=== PATIENT | female | born 1980 | race Caucasian/White ===

== ENCOUNTER 2017-06-30 12:14 | Emergency (ER) | payer SELFPAY ==
--- NOTE | 2017-06-30 12:56 | RAD ---
TWO VIEWS OF THE CHEST: HISTORY: Cough. Chest pain. COMPARISON: 03/15/2015 FINDINGS: Two views of the chest show normal sized cardiomediastinal silhouette. There is no evidence of consol idation, mass, or pleural effusion. The bones are unremarkable. IMPRESSION: No evidence of acute cardiopulmonary disease. POS: [facility]
== END 2017-06-30 13:05 | disposition home or self-care (01) ==
LOC: ERS 12:14
DX: J06.9 Acute upper respiratory infection, unspecified (principal); Z87.891 Personal history of nicotine dependence
CPT/HCPCS: 71046

== ENCOUNTER 2017-11-05 15:16 | Emergency (ER) | payer BC ==
[2017-11-05 16:00] LABS: #Basophils 0.1 thou/uL (0.0-0.2); #Eosinphils 0.2 thou/uL (0.0-0.7); #Lymphocytes 2.2 thou/uL (1.20-3.40); #Monocytes 0.5 thou/uL (0.11-0.59); #Neutrophils 5.9 thou/uL (1.40-6.50); %Basophils 1.2 % (0.0-1.0); %Lymphocytes 24.6 % (21.0-51.0); %Monocytes 5.5 % (0.0-10.0); %Neutrophils 66.6 % (42.0-75.0); Hemoglobin 14.6 g/dL (12.0-16.0); Mean Corpuscular HGB CONC 33.8 g/dL (32.0-36.0); Mean Corpuscular Hemoglobin 30.1 pg (27.0-31.0); Mean Platelet Volume 7.1 fL (7.4-10.4); Platelet Count 299 thou/uL (130-400); RBC Distribution Width 12.7 % (11.5-14.5); Red Blood Cell (RBC) Count 4.85 mill/uL (4.20-5.40); White Blood Cell (WBC) Count 8.8 thou/uL (4.8-10.8)
[2017-11-05] MEDS ORDERED: Ketorolac Tromethamine 30 MG/ML VIAL ONE (16:02)
[2017-11-05] MEDS ORDERED: diphenhydrAMINE 50 MG/ML VIAL ONE (16:02)
[2017-11-05] MEDS ORDERED: methylPREDNISolone Sod Succ/PF 125 MG/2 ML VIAL ONE (16:02)
== END 2017-11-05 17:10 | disposition home or self-care (01) ==
LOC: SCSER 15:16
DX: R51 Headache (principal); F32.9 Major depressive disorder, single episode, unspecified; Z79.899 Other long term (current) drug therapy; Z87.891 Personal history of nicotine dependence
CPT/HCPCS: 85025; 85652; 86140; 96374; 96375; J1200; J1885; J2930

== ENCOUNTER 2018-04-25 10:56 | Emergency (ER) | payer BC ==
[2018-04-25] MEDS ORDERED: ISOVUE-370 76%-LOCM 1 ML ONE (12:33)
[2018-04-25 12:34] LABS: #Basophils 0.1 thou/uL (0.0-0.2); #Eosinphils 0.2 thou/uL (0.0-0.7); #Monocytes 0.6 thou/uL (0.11-0.59); %Basophils 0.7 % (0.0-1.0); %Eosinophils 2.5 % (0.0-10.0); %Lymphocytes 26.1 % (21.0-51.0); %Monocytes 7.2 % (0.0-10.0); %Neutrophils 63.5 % (42.0-75.0); Hemoglobin 14.1 g/dL (12.0-16.0); Mean Corpuscular HGB CONC 32.3 g/dL (32.0-36.0); Mean Corpuscular Hemoglobin 29.4 pg (27.0-31.0); Mean Corpuscular Volume 91.2 fL (78.0-98.0); Mean Platelet Volume 7.9 fL (7.4-10.4); Platelet Count 266 thou/uL (130-400); RBC Distribution Width 12.5 % (11.5-14.5); Red Blood Cell (RBC) Count 4.78 mill/uL (4.20-5.40); White Blood Cell (WBC) Count 7.8 thou/uL (4.8-10.8)
[2018-04-25 13:03] LABS: CKMB 0.4 ng/mL (0-6.6); Troponin I Less than 0.010 ng/mL (< 0.028)
[2018-04-25 13:06] LABS: ALT (SGPT) 24 U/L (8-55); AST (SGOT) 16 U/L (5-34); Alkaline Phosphatase 69 U/L (40-150); Anion Gap 12 mmol/L (10-20); BUN (Urea Nitrogen) 14 mg/dL (7.0-18.7); Bilirubin, Total 0.5 mg/dL (0.2-1.2); Calc. Creatinine Clearance 0 mL/min (70-130); Calcium 9.6 mg/dL (7.8-10.44); Carbon Dioxide 23 mmol/L (22-29); Chloride 106 mmol/L (98-107); Estimated GFR-MDRD 85; Globulin 3.4 g/dL (2.4-3.5); Glucose 83 mg/dL (70-105); Potassium 3.9 mmol/L (3.5-5.1); Protein, Total 7.4 g/dL (6.0-8.3); Sodium 137 mmol/L (136-145)
--- NOTE | 2018-04-25 15:11 | CT ---
CT ANGIOGRAM OF CHEST: Date: 04/25/18 HISTORY: Chest pain. Substernal pain. COMPARISON: None. TECHNIQUE: CT angiogram of the chest is performed in the axial plane. Three-dimensional reformatted images are s ubmitted for interpretation. FINDINGS: No mediastinal mass, lymphadenopathy, or hematoma. Heart size is within normal limits. No pericardial effusion. Visualized aorta is normal caliber. No periaortic fat stranding. Hypoattenuation of the liver due to hepatic steatosis. Visualized upper solid organs are unremarkable . Dependent atelectatic changes. Small focal opacity in the dependent portion of the right lower lobe m easuring 7.0 mm. Trachea and central bronchi are patent. Adequate contrast opacification of pulmonary arterial system to the level of the segmental arteries. No filling defect to suggest thromboembolism. IMPRESSION: 1. No evidence of thrombus to the level of the segmental arteries. 2. Hepatic steatosis. POS: [facility]
[2018-04-25] MEDS ORDERED: Ketorolac Tromethamine 30 MG/ML VIAL ONE (15:19)
--- NOTE | 2018-04-29 17:05 | EKG ---
Test Reason : Blood Pressure : / mmHG Vent. Rate : 067 BPM Atrial Rate : 067 BPM P-R Int : 156 ms QRS Dur : 082 ms QT Int : 394 ms P-R-T Axes : 039 018 011 degrees QTc Int : 416 ms Normal sinus rhythm Normal ECG Confirmed by FRANCISCO GALVAN ([id number]), editor city JARET PORTILLO ([id number]) on 04/29/2018 5:04:22 PM Referred By: Confirmed By:FRANCISCO GALVAN
--- NOTE | 2018-04-29 17:06 | EKG ---
Test Reason : Blood Pressure : / mmHG Vent. Rate : 073 BPM Atrial Rate : 073 BPM P-R Int : 148 ms QRS Dur : 082 ms QT Int : 386 ms P-R-T Axes : 021 020 011 degrees QTc Int : 425 ms Normal sinus rhythm Normal ECG Confirmed by FRANCISCO GALVAN ([id number]), subeditor JARET PORTILLO ([id number]) on 04/29/2018 5:06:24 PM Referred By: Confirmed By:FRANCISCO GALVAN
== END 2018-04-25 15:25 | disposition home or self-care (01) ==
LOC: ERS 10:56
DX: R07.89 Other chest pain (principal); F32.9 Major depressive disorder, single episode, unspecified; Z87.891 Personal history of nicotine dependence; Z79.899 Other long term (current) drug therapy
CPT/HCPCS: 36415; 71275; 80053; 82553; 83735; 84484; 85025; 85379; 93005; 94760; 96374; J1885

== ENCOUNTER 2018-10-05 18:41 | Observation (INO) | payer BC ==
[2018-10-05 19:08] LABS: #Basophils 0.1 thou/uL (0.0-0.2); #Eosinphils 0.2 thou/uL (0.0-0.7); #Lymphocytes 2.5 thou/uL (1.20-3.40); #Monocytes 0.5 thou/uL (0.11-0.59); #Neutrophils 7.7 thou/uL (1.40-6.50); %Basophils 0.6 % (0.0-1.0); %Eosinophils 2.2 % (0.0-10.0); %Lymphocytes 22.7 % (21.0-51.0); %Monocytes 4.8 % (0.0-10.0); %Neutrophils 69.8 % (42.0-75.0); Hemoglobin 14.1 g/dL (12.0-16.0); Mean Corpuscular HGB CONC 32.7 g/dL (32.0-36.0); Mean Corpuscular Hemoglobin 29.2 pg (27.0-31.0); Mean Corpuscular Volume 89.1 fL (78.0-98.0); Mean Platelet Volume 7.9 fL (7.4-10.4); Platelet Count 295 thou/uL (130-400); RBC Distribution Width 12.7 % (11.5-14.5); Red Blood Cell (RBC) Count 4.83 mill/uL (4.20-5.40); White Blood Cell (WBC) Count 11.1 thou/uL (4.8-10.8)
--- NOTE | 2018-10-05 19:19 | RAD ---
Portable frontal chest radiograph: 10/05/2018 COMPARISON: 07/16/2014 HISTORY: Chest pain FINDINGS: Lungs are clear. Heart and mediastinal contours appear within normal limits. IMPRESSION: No acute findings.
[2018-10-05 19:31] LABS: ALT (SGPT) 22 U/L (8-55); AST (SGOT) 18 U/L (5-34); Albumin 4.2 g/dL (3.5-5.0); Alkaline Phosphatase 83 U/L (40-150); Anion Gap 13 mmol/L (10-20); BUN (Urea Nitrogen) 12 mg/dL (7.0-18.7); Bilirubin, Total 0.3 mg/dL (0.2-1.2); Calc. Creatinine Clearance 0 mL/min (70-130); Calcium 9.6 mg/dL (7.8-10.44); Carbon Dioxide 25 mmol/L (22-29); Chloride 102 mmol/L (98-107); Estimated GFR-MDRD 81; Globulin 3.6 g/dL (2.4-3.5); Glucose 108 mg/dL (70-105); Lipase 24 U/L (8-78); Potassium 3.7 mmol/L (3.5-5.1); Protein, Total 7.8 g/dL (6.0-8.3); Sodium 136 mmol/L (136-145)
[2018-10-05] MEDS ORDERED: Aspirin Chewable 81 MG TAB ONE (19:49)
[2018-10-05] MEDS ORDERED: Nitroglycerin 2% Ointment 1 INCH/1 GM Packet ONE (19:49)
[2018-10-05 19:53] LABS: BHCG - Serum Negative (NEGATIVE); Pregs Control Background? CLEAR/WHITE (CLR/WHITE); Pregs Control Bar Appear? YES (CONTROL BAR)
[2018-10-05] MEDS ORDERED: Ondansetron ODT 4 MG TAB PO PRN (20:21)
[2018-10-05] MEDS ORDERED: Ondansetron PF 4 MG/2 ML Vial IVP PRN (20:21)
[2018-10-05] MEDS ORDERED: Labetalol HCl 100 MG/20 ML VIAL SLOW IVP PRN (20:59)
[2018-10-05 21:23] VITALS: BMI 53.2
[2018-10-05] MEDS: Acetaminophen 325 MG TAB PO PRN (21:48)
--- NOTE | 2018-10-05 21:52 | HP ---
PRIMARY CARE PHYSICIAN: Dr. Darcy Brothers. TIME OF EVALUATION: 8:00 p.m. CHIEF COMPLAINT: Chest pain. HISTORY OF PRESENT ILLNESS: This is a 37-year-old patient with past medical history of hypertension, came to the hospital after having chest pain, radiated to the left shoulder that was 6/10. walks around, the pain gets worse and the pain gets better with rest. Also associated with some nausea. Symptoms are moderate. The patient has a family history of coronary artery disease in her father. REVIEW OF SYSTEMS: CONSTITUTIONAL: No fever, chills, or generalized weakness. RESPIRATORY: No cough, sputum production, or shortness of breath. CARDIOVASCULAR: Chest pain. No palpitation. GASTROINTESTINAL: The patient reported nausea. No vomiting, diarrhea, or abdominal pain. CAPTAIN/AIRLINE PILOT: No dizziness, headache, or feeling lightheaded. GENITOURINARY: No burning on urination. EXTREMITIES: No leg swelling. All other systems were reviewed and negative except for the findings mentioned above. PAST MEDICAL HISTORY: Positive for left-sided ovarian cancer, hypertension. PAST SURGICAL HISTORY: Right carpal tunnel and oophorectomy. PSYCHIATRIC HISTORY: Depression. SOCIAL HISTORY: Drinks socially. No drug use. The patient is a former tobacco user. FAMILY HISTORY: Father has a history of heart disease. Mother has hypertension. KNOWN ALLERGIES: No known drug allergies. REPORTED MEDICATIONS: Zoloft and lisinopril. PHYSICAL EXAMINATION: VITAL SIGNS: On presentation, blood pressure 153/98 with heart rate 79, respiratory rate was 20, temperature 98.8, pain 4/10, oxygen saturation was 96. GENERAL APPEARANCE: The patient is alert, oriented, not in acute distress. HEENT: Eyes; normal conjunctivae. Moist oral mucosa. Anicteric. No JVD. RESPIRATORY: Bilateral air entry. No rales. No wheezes. Symmetric expansion. CARDIOVASCULAR: Normal rate, regular rhythm. No murmurs. No gallop. No edema. ABDOMEN: Soft. Normal bowel sounds. MUSCULOSKELETAL: Baseline range of motion and strength. No tenderness. SKIN: Warm, intact. No pallor. No rash. No redness. Peripheral pulses are present. Capillary refill seems to be intact. NEUROLOGIC: No evidence of any new focal weakness. Baseline speech. Cranial nerves seem to be intact. PSYCHIATRIC: The patient is in good mood. No anxiety. Optimal judgment. DIAGNOSTIC DATA: EKG was reviewed and the patient has normal sinus rhythm with a rate of 81 with [place] 142, QRS 82, QT corrected 439. Chest x-ray was reviewed, no acute findings. LABORATORY DATA: Labs were reviewed. The patient has a white count of 11.1, hemoglobin 14.1, hematocrit 43, MCV 89.1, platelet count 295. D-dimer 0.41. Chemistry; sodium 136, potassium 3.7, chloride 102, carbon dioxide 25, anion gap 13, BUN 12, creatinine 0.79, GFR 81, glucose 108, calcium 9.6. LFTs were normal. Albumin 4.2, globulin 3.6, albumin-globulin ratio is 1.2. Lipase 24. test was negative. ASSESSMENT AND PLAN: The patient will be placed in the hospital with following medical problems: 1. Chest pain, rule out acute coronary syndrome. Troponins negative. EKG unremarkable. We will monitor the patient on tele. We will do a stress test in the morning. Further workup to be determined after initial approach results. 2. Uncontrolled hypertension, systolic blood pressure 160. Reconcile home medications as soon as they have updated. The patient does not recall well what blood pressure medication she is using. Place the patient on p.r.n. medications for blood pressure control. 3. Deep venous thrombosis prophylaxis. 4. The patient is obese. Advised to lose weight. Job ID: [id number]
[2018-10-05 22:45] LABS: Cardiac Risk 5.7 (Less than 4.5)
[2018-10-05 22:49] LABS: Troponin I Less than 0.010 ng/mL (< 0.028)
[2018-10-06 04:59] LABS: #Eosinphils 0.3 thou/uL (0.0-0.7); #Lymphocytes 2.6 thou/uL (1.20-3.40); #Monocytes 0.7 thou/uL (0.11-0.59); %Basophils 0.4 % (0.0-1.0); %Eosinophils 3.5 % (0.0-10.0); %Lymphocytes 27.1 % (21.0-51.0); %Monocytes 7.2 % (0.0-10.0); %Neutrophils 61.9 % (42.0-75.0); Hemoglobin 12.3 g/dL (12.0-16.0); Mean Corpuscular HGB CONC 32.6 g/dL (32.0-36.0); Mean Corpuscular Hemoglobin 29.2 pg (27.0-31.0); Mean Corpuscular Volume 89.6 fL (78.0-98.0); Mean Platelet Volume 7.9 fL (7.4-10.4); Platelet Count 275 thou/uL (130-400); RBC Distribution Width 12.7 % (11.5-14.5); Red Blood Cell (RBC) Count 4.22 mill/uL (4.20-5.40); White Blood Cell (WBC) Count 9.7 thou/uL (4.8-10.8)
[2018-10-06 05:19] LABS: Anion Gap 13 mmol/L (10-20); BUN (Urea Nitrogen) 11 mg/dL (7.0-18.7); Calc. Creatinine Clearance 237 mL/min (70-130); Carbon Dioxide 25 mmol/L (22-29); Chloride 104 mmol/L (98-107); Estimated GFR-MDRD Greater than 90; Glucose 93 mg/dL (70-105); Sodium 138 mmol/L (136-145)
[2018-10-06] MEDS: Acetaminophen 325 MG TAB PO PRN ×2 (08:31→13:54)
[2018-10-06] MEDS ORDERED: Enoxaparin Sodium 40 MG/0.4 ML SYRINGE SC SCH (09:00)
[2018-10-06 11:24] VITALS: BP 112/66; TEMP 98
[2018-10-06] MEDS ORDERED: Ketorolac Tromethamine 30 MG/ML VIAL IVP SCH ×2 (13:45→14:45)
--- NOTE | 2018-10-07 01:37 | DIS ---
DATE OF ADMISSION: 10/05/2018 DATE OF DISCHARGE: 10/06/2018 ALLERGIES: NO KNOWN DRUG ALLERGIES. CHIEF COMPLAINT: Chest pain. FINAL DIAGNOSES: 1. Atypical chest pain, likely musculoskeletal/pleuritic, resolved with Toradol, acute coronary syndrome ruled out, treadmill stress test negative for ischemia. 2. Obesity. 3. Hypertension. 4. Mixed hyperlipidemia. PROCEDURES PERFORMED: None. LABORATORY RESULTS: White blood cell count 9.7, hemoglobin 12.3, hematocrit 37.8, platelet count 275. D-dimer 0.41. Sodium 138, potassium 4.0, chloride 104, carbon dioxide 25, BUN 11, creatinine 0.68, GFR greater than 90. Troponin negative x3. BNP less than 10. Triglycerides 263, cholesterol 205, LDL 116, HDL 36, lipase 24. IMAGING RESULTS: Chest x-ray, lungs are clear. No acute findings. Regular treadmill stress test report shows normal resting EKG with sinus rhythm at 70, maximal heart rate of 153 with an appropriate rise in blood pressure, ECG showed no significant changes at maximum exercise. CONSULTATIONS: None. VITAL SIGNS: BP 112/66, pulse is 72, O2 saturation is 95% on room air, respirations 16. HOSPITAL COURSE: The patient is a 37-year-old female with past medical history significant for hypertension and obesity, who presented to the hospital with complaints of chest pain, that seemed to come on with stress during a Tornado warning. The patient reports the pain as sharp, with radiation to the left arm. The pain does not seem to be exertional, she also complains of this pain at rest. She was admitted for ACS rule out. Treadmill stress test was negative for ischemia. On the floor, the patient was given IV Toradol with significant improvement and eventual resolution of her symptoms. Initially, she had been tender to palpation along the chest wall, but this has resolved. Her blood work was largely unremarkable aside from mixed hyperlipidemia with a total cholesterol of 205 and triglycerides of 263. At this time, the patient is resting comfortably. She has no complaints of shortness of breath or nausea. No fevers or chills. PHYSICAL EXAMINATION: GENERAL: This is an obese female who appears her stated age, resting comfortably in bed, in no acute distress. HEENT: Head, atraumatic and normocephalic. Mucous membranes are moist. NECK: No lymphadenopathy. No JVD. Trachea is midline. No carotid bruits. CV: S1 and S2. Regular rate and rhythm. No appreciable murmurs, rubs, or gallops. LUNGS: Regular respiratory rate and pattern. Clear to auscultation bilaterally. ABDOMEN: Soft, positive bowel sounds, obese, nontender. No organomegaly. EXTREMITIES: No edema. Lower extremities are warm and well perfused. SKIN: Warm and dry. No rashes. NEURO: Cranial nerves 2 through 12 intact. The patient is nonfocal. CONDITION ON DISCHARGE: Stable. DISCHARGE MEDICATIONS: 1. Lisinopril 5 mg daily. 2. Sertraline 50 mg p.o. daily. 3. Mirena IUD. 4. Acetaminophen 500 mg tablet, 1000 mg p.o. q.6 hours. I have advised her to take [id number] ibuprofen for musculoskeletal pain, as well as starting an omega-3 fatty fish oil [id number]. DISCHARGE DISPOSITION: Home. PLAN: I have discussed aggressive risk factor modification with the patient including diet, weight loss, and exercise. She will continue fish oil. She will continue anti-inflammatories for musculoskeletal pain. Findings of testing have been discussed with the patient and all questions answered. Care of this patient has been discussed with Dr. Taylor, who agrees with the above. Job ID: [id number]
== END 2018-10-06 16:37 | disposition home or self-care (01) ==
LOC: ERS 18:41 → 2SW 19:40
PROVIDERS: ADMIT Hospitalist; ATTEND Hospitalist
DX: R07.89 Other chest pain (principal); I10 Essential (primary) hypertension; F32.9 Major depressive disorder, single episode, unspecified; E78.2 Mixed hyperlipidemia; E66.9 Obesity, unspecified; Z68.43 Body mass index [BMI] 50.0-59.9, adult; Z87.891 Personal history of nicotine dependence; Z79.899 Other long term (current) drug therapy
CPT/HCPCS: 36415; 71045; 80048; 80053; 80061; 82550; 83690; 83880; 84484; 84703; 85025; 85379; 93005; 93017; 96360; 96361; 96372; 96374; 96376; G0378; J1650; J1885

== ENCOUNTER 2018-10-22 21:36 | Emergency (ER) | payer BC, MEDICAID ==
[2018-10-22] MEDS ORDERED: Haloperidol Lactate 5 MG/ML VIAL ONE (21:54)
== END 2018-10-22 22:59 | disposition home or self-care (01) ==
LOC: ERS 21:36
DX: S00.86XA Insect bite (nonvenomous) of other part of head, initial encounter (principal); I10 Essential (primary) hypertension; Z87.891 Personal history of nicotine dependence; Z79.899 Other long term (current) drug therapy; W57.XXXA Bitten or stung by nonvenomous insect and other nonvenomous arthropods, initial encounter
CPT/HCPCS: 99283; J1630

== ENCOUNTER 2018-11-15 14:46 | Outpatient (CLI) | payer BC ==
--- NOTE | 2018-11-15 15:03 | RAD ---
3 views right shoulder. HISTORY: Acute right shoulder pain. AP internally, externally scapular Y views right shoulder obtained. No evidence of right shoulder fractures, subluxations or bony lesion seen. IMPRESSION: no evidence of acute right shoulder fractures.
[2018-11-15 15:26] LABS: ALT (SGPT) 21 U/L (8-55); AST (SGOT) 16 U/L (5-34); Albumin 4.1 g/dL (3.5-5.0); Alkaline Phosphatase 73 U/L (40-150); Anion Gap 12 mmol/L (10-20); BUN (Urea Nitrogen) 11 mg/dL (7.0-18.7); Band 2 % (5-11); Bilirubin, Total 0.6 mg/dL (0.2-1.2); Calc. Creatinine Clearance 0 mL/min (70-130); Calcium 9.4 mg/dL (7.8-10.44); Carbon Dioxide 24 mmol/L (22-29); Cardiac Risk 5.4 (Less than 4.5); Chloride 105 mmol/L (98-107); Cholesterol 200 mg/dl (< 200 Desired); Estimated GFR-MDRD 86; Globulin 3.7 g/dL (2.4-3.5); Glucose 78 mg/dL (70-105); HDL Cholesterol 37 mg/dL (>60 Neg Risk); Hemoglobin 13.6 g/dL (12.0-16.0); LDL Cholesterol, Calculated 130 mg/dL; Lymphocytes 20 % (21-51); MDiff Complete? YES; Mean Corpuscular HGB CONC 32.4 g/dL (32.0-36.0); Mean Corpuscular Hemoglobin 28.7 pg (27.0-31.0); Mean Corpuscular Volume 88.3 fL (78.0-98.0); Mean Platelet Volume 7.4 fL (7.4-10.4); Monocytes 5 % (0-10); Neutrophil 71 % (42-75); Platelet Count 316 thou/uL (130-400); Platelet Morphology Comment Appears Adequate; Potassium 3.9 mmol/L (3.5-5.1); Protein, Total 7.8 g/dL (6.0-8.3); RBC Distribution Width 13.1 % (11.5-14.5); Reactive Lymphocytes 2 % (0-10); Red Blood Cell (RBC) Count 4.76 mill/uL (4.20-5.40); Sodium 137 mmol/L (136-145); Triglycerides 163 mg/dL (Less than 150); White Blood Cell (WBC) Count 11.2 thou/uL (4.8-10.8)
== END 2018-11-15 14:47 | disposition home or self-care (01) ==
LOC: SCSRAD 14:46
PROVIDERS: ATTEND Nurse Practitioner Family
DX: M25.511 Pain in right shoulder (principal); F41.8 Other specified anxiety disorders; R68.2 Dry mouth, unspecified; R68.89 Other general symptoms and signs; R53.82 Chronic fatigue, unspecified
CPT/HCPCS: 36415; 80053; 80061; 84443; 85025

== ENCOUNTER 2019-01-09 15:23 | Emergency (ER) | payer BC | END 2019-01-09 16:41 | disposition home or self-care (01) | LOC: ERS 15:23 | DX: J02.9 Acute pharyngitis, unspecified (principal); I10 Essential (primary) hypertension; Z79.899 Other long term (current) drug therapy | CPT/HCPCS: 87081; 87430; 99283 ==

== ENCOUNTER 2019-05-30 09:55 | Outpatient (CLI) | payer BC ==
--- NOTE | 2019-05-30 10:35 | RAD ---
XR Humerus Rt 2 View STANDARD HISTORY: Fall, right arm pain FINDINGS: The right humerus appears intact.
--- NOTE | 2019-05-30 10:36 | RAD ---
XR Forearm Rt 2 View STANDARD HISTORY: Fall, right forearm pain FINDINGS: The right radius and ulna appear intact.
--- NOTE | 2019-05-30 10:37 | RAD ---
XR Hand Rt 3 View STANDARD HISTORY: Fall, right hand pain FINDINGS: No fracture or dislocation is identified.
--- NOTE | 2019-05-30 10:37 | RAD ---
RIGHT WRIST 3 VIEWS: HISTORY: Right wrist pain, injury FINDINGS: No acute fracture or dislocation is identified. If symptoms do not improve, a follow-up exam should be obtained in 7-10 days.
== END 2019-05-30 09:56 | disposition home or self-care (01) ==
LOC: SCSRAD 09:55
PROVIDERS: ATTEND Nurse Practitioner Family
DX: M79.601 Pain in right arm (principal)

== ENCOUNTER 2020-04-17 08:51 | Observation (INO) | payer BC ==
[2020-04-17] MEDS ORDERED: Aspirin Chewable 81 MG TAB ONE (09:03)
[2020-04-17 09:13] LABS: #Basophils 0.1 thou/uL (0.0-0.2); #Eosinphils 0.2 thou/uL (0.0-0.7); #Lymphocytes 2.1 thou/uL (1.20-3.40); #Monocytes 0.6 thou/uL (0.11-0.59); #Neutrophils 4.9 thou/uL (1.40-6.50); %Eosinophils 2.5 % (0.0-10.0); %Monocytes 7.3 % (0.0-10.0); %Neutrophils 62.2 % (42.0-75.0); Hemoglobin 14.9 g/dL (12.0-16.0); Mean Corpuscular HGB CONC 33.2 g/dL (32.0-36.0); Mean Corpuscular Hemoglobin 29.3 pg (27.0-31.0); Mean Corpuscular Volume 88.3 fL (78.0-98.0); Platelet Count 302 thou/uL (130-400); RBC Distribution Width 12.6 % (11.5-14.5); Red Blood Cell (RBC) Count 5.08 mill/uL (4.20-5.40); White Blood Cell (WBC) Count 7.8 thou/uL (4.8-10.8)
[2020-04-17] MEDS ORDERED: Nitroglycerin 0.4 MG TAB 1 EACH ONE (09:25)
[2020-04-17 09:43] LABS: CK (CPK) 55 U/L (29-168); Lipase 14 U/L (8-78)
[2020-04-17 09:44] LABS: ALT (SGPT) 28 U/L (8-55); AST (SGOT) 20 U/L (5-34); Albumin 4.3 g/dL (3.5-5.0); Alkaline Phosphatase 93 U/L (40-110); Anion Gap 18 mmol/L (10-20); BUN (Urea Nitrogen) 13 mg/dL (7.0-18.7); Bilirubin, Total 0.3 mg/dL (0.2-1.2); Calc. Creatinine Clearance 0 mL/min (70-130); Calcium 9.4 mg/dL (7.8-10.44); Carbon Dioxide 23 mmol/L (22-29); Chloride 104 mmol/L (98-107); Estimated GFR-MDRD 74; Globulin 3.5 g/dL (2.4-3.5); Glucose 98 mg/dL (70-105); Potassium 4.7 mmol/L (3.5-5.1); Protein, Total 7.8 g/dL (6.0-8.3); Sodium 140 mmol/L (136-145)
--- NOTE | 2020-04-17 09:47 | RAD ---
PORTABLE CHEST: Date: 04/17/2020 COMPARISON: 10/05/2018 exam. HISTORY: Left-sided chest pain. FINDINGS: Heart size and mediastinum are within normal limits. The lungs are clear of any infiltrative process. No signs of failure. IMPRESSION: No active intrathoracic disease. POS: [facility]
[2020-04-17] MEDS ORDERED: Acetaminophen 650 MG Suppository PR PRN (11:46)
[2020-04-17] MEDS ORDERED: Nitroglycerin 0.4 MG TAB (25 Tab Bottle) SL PRN (11:49)
[2020-04-17] MEDS ORDERED: traMADol HCl 50 MG TAB PO SCH (12:00)
--- NOTE | 2020-04-17 12:00 | PDOC.HHP ---
Hospitalist HPI - History of Present Illness Chest pain History of Present Illness: ADMISSION DATE: 04/17/2020 TIME OF ASSESSMENT: 1100 PRIMARY CARE PHYSICIAN: Dr. Jules Almanza CHIEF COMPLAINT: Chest pain HPI: Patient presents with sudden onset of chest pain this morning while she was driving. States that she experienced left-sided chest pain described as a stabbing sensation which she rates a 6 out of 10 in severity initially. It radiated to her left shoulder which was stabbing in sensation as well. The pain was intermittent, recurring every few minutes. Patient states that the discomfort in her chest became more severe when she arrived to the emergency department and by the time she was put in a room and had increased to a 10 out of 10 in severity taking her breath away. She was given nitroglycerin and aspirin which she states has brought her pain down to a 2 out of 10 in severity. States it continues to recur every few minutes and seems to be most intense in her left shoulder. There is some pain with palpation to her left shoulder and discomfort with range of motion. She denies any trauma or injuries but states she did move last weekend and does not recall any heavy lifting. Over the last few days she is felt well and denies having any palpitations shortness of breath or chest pain before today. When her pain came on she did experience nausea but denies any vomiting. No diaphoresis. Denies any lightheadedness. Has not had any recent fevers chills or cough. No hemoptysis. No lower extremity swelling or leg pain. She has had a stress test in the past which was done in September 2018 and apparently was normal. ED COURSE: In the emergency department the patient underwent an EKG that showed a normal sinus rhythm with a heart rate of 80. She had no ST changes or T wave abnormalities. She was noted to be hypertensive with blood pressure of 175/112. Chest x-ray done showed no acute intrathoracic disease. Laboratory studies done as well showing a normal full blood count. LFTs unremarkable and lipase normal. BUN 13, creatinine 0.85 and GFR 74. Initial troponin was negative. She received 324 mg of aspirin and 0.4 mg of nitroglycerin sublingual. Her pain improved and blood pressure normalized to 128/84. Currently she reports the left-sided chest pain and left shoulder pain remains intermittent but is a 2 out of 10 in severity. PAST MEDICAL HISTORY: 1. Hypertension 2. Anxiety 3. Morbid obesity 4. Depression PAST SURGICAL HISTORY: 1. Right carpal tunnel surgery with ganglion cyst removed 2. Left oophorectomy July 2015, due to malignancy. SOCIAL HISTORY: Patient has a history of smoking in the past but quit 5 years ago. Denies any alcohol consumption. Denies any drug use. She is fully independent and lives with her family. FAMILY HISTORY: History of diabetes in her mother. ALLERGIES: Steroids CURRENT MEDICATIONS: 1. Zoloft 2. Lisinopril 3. Mirena for control - Exam General Appearance: NAD, awake alert General - other findings: VS: BP 128/84, HR 76, respiratory 22, O2 sat 97% on room air, temp 97.8. Eye: PERRL, anicteric sclera ENT: normocephalic atraumatic, moist mucosa Neck: supple, no lymphadenopathy Heart: RRR, normal peripheral pulses Respiratory: CTAB, no wheezes, no rales, no ronchi Gastrointestinal: soft, tender to palpation (epigastric region and RUQ, +prado's sign) Extremities: no edema Skin: normal turgor, no rashes Neurological: cranial nerve grossly intact, normal sensation to touch, no weakness, no focal deficits Musculoskeletal: normal tone, normal strength, no muscle wasting Psychiatric: normal affect, normal behavior, A&O x 3 Hospitalist Results - Labs Result Diagrams: 04/17/20 09:05 04/17/20 09:05 Lab results: WBC 7.8 thou/uL (4.8-10.8) 04/17/20 09:05 Hgb 14.9 g/dL (12.0-16.0) 04/17/20 09:05 Hct 44.8 % (36.0-47.0) 04/17/20 09:05 MCV 88.3 fL (78.0-98.0) 04/17/20 09:05 Plt Count 302 thou/uL (130-400) 04/17/20 09:05 Neutrophils % 62.2 % (42.0-75.0) 04/17/20 09:05 Sodium 140 mmol/L (136-145) 04/17/20 09:05 Potassium 4.7 mmol/L (3.5-5.1) 04/17/20 09:05 Chloride 104 mmol/L (98-107) 04/17/20 09:05 Carbon Dioxide 23 mmol/L (22-29) 04/17/20 09:05 BUN 13 mg/dL (7.0-18.7) 04/17/20 09:05 Creatinine 0.85 mg/dL (0.6-1.1) 04/17/20 09:05 Glucose 98 mg/dL (70-105) 04/17/20 09:05 Calcium 9.4 mg/dL (7.8-10.44) 04/17/20 09:05 Total Bilirubin 0.3 mg/dL (0.2-1.2) 04/17/20 09:05 AST 20 U/L (5-34) 04/17/20 09:05 ALT 28 U/L (8-55) 04/17/20 09:05 Alkaline Phosphatase 93 U/L (40-110) 04/17/20 09:05 Creatine Kinase 55 U/L (29-168) 04/17/20 09:05 Troponin I Less than 0.010 ng/mL (< 0.028) 04/17/20 09:05 Serum Total Protein 7.8 g/dL (6.0-8.3) 04/17/20 09:05 Albumin 4.3 g/dL (3.5-5.0) 04/17/20 09:05 Lipase 14 U/L (8-78) 04/17/20 09:05 Hospitalist H&P A/P - Problem (1) Chest pain Code(s): R07.9 - CHEST PAIN, UNSPECIFIED Status: Acute Assessment and Plan: Cardiac monitoring. Trend troponins. Check Mg+, TSH, and d-dimer. Lipid panel with AM labs. Stress test for tomorrow AM. NPO after midnight. GI cocktail for possible gastritis/esophagitis, given epigastric discomfort. (2) Left shoulder pain Code(s): M25.512 - PAIN IN LEFT SHOULDER Status: Acute Assessment and Plan: Tenderness to palpation, difficulty abducting at shoulder joint. Tramadol for pain. Left shoulder xray. (3) Abdominal tenderness, RUQ (right upper quadrant) Code(s): R10.811 - RIGHT UPPER QUADRANT ABDOMINAL TENDERNESS Status: Acute Assessment and Plan: LFTs and lipase normal. Famotidine and GI cocktail as mentioned above RUQ US. Repeat LFTs in the AM to assess for uptrending. (4) Hypertension Code(s): I10 - ESSENTIAL (PRIMARY) HYPERTENSION Status: Chronic Assessment and Plan: Monitor BP. Resume home meds. (5) Morbid obesity Code(s): E66.01 - MORBID (SEVERE) OBESITY DUE TO EXCESS CALORIES Status: Chronic (6) Anxiety and depression Code(s): F41.9 - ANXIETY DISORDER, UNSPECIFIED; F32.9 - MAJOR DEPRESSIVE DISORDER, SINGLE EPISODE, UNSPECIFIED Status: Chronic Assessment and Plan: Resume home medications once verified. Patient is on Zoloft at home. - Plan Plan: GI Prophylaxis with Famotidine. DVT Prophylaxis: patient is ambulatory. CODE STATUS FULL Case discussed with Dr. Du who agrees with plan as above.
[2020-04-17] MEDS ORDERED: Lidocaine 2% Viscous Solution 10 ML, Aluminum & Magnesium Hydroxide 30 ML SSW SCH (12:15)
[2020-04-17 12:46] LABS: BHCG - Serum Negative (NEGATIVE); Pregs Control Background? CLEAR/WHITE (CLR/WHITE); Pregs Control Bar Appear? YES (CONTROL BAR)
--- NOTE | 2020-04-17 13:17 | RAD ---
LEFT SHOULDER 3 VIEWS: Date: 04/17/2020 HISTORY: Shoulder pain. Exam performed portably. Positioning is suboptimal. True internal and external rotation views are not performed. No evidence of fracture or dislocation. AC joint is normally aligned. IMPRESSION: No acute abnormalities identified. POS: [facility]
[2020-04-17 15:22] VITALS: BMI 54.1
[2020-04-17] MEDS: Acetaminophen 325 MG TAB PO PRN (15:43)
[2020-04-17] MEDS: Lidocaine 5% Patch TD SCH (18:04)
[2020-04-17 18:21] LABS: SARS-CoV-2 MS2 Positive; SARS-CoV-2 N Gene Negative; SARS-CoV-2 S Gene Negative; SARS-CoV-2 by NAA Not Detected (NotDetected); SARS-CoV-2 orf1ab Negative
[2020-04-17] MEDS ORDERED: Lidocaine Patch Removal 1 EACH TOP SCH (21:00)
[2020-04-17] MEDS: Famotidine 20 MG TAB PO SCH (21:47)
[2020-04-17] MEDS ORDERED: Sodium Chloride 0.9% 1,000 ML IV SCH (23:50)
[2020-04-18 04:28] LABS: #Basophils 0.1 thou/uL (0.0-0.2); #Eosinphils 0.3 thou/uL (0.0-0.7); #Monocytes 0.5 thou/uL (0.11-0.59); #Neutrophils 4.4 thou/uL (1.40-6.50); %Basophils 0.9 % (0.0-1.0); %Eosinophils 3.8 % (0.0-10.0); %Lymphocytes 27.1 % (21.0-51.0); %Monocytes 7.3 % (0.0-10.0); %Neutrophils 60.8 % (42.0-75.0); Hemoglobin 13.9 g/dL (12.0-16.0); Mean Corpuscular HGB CONC 33.5 g/dL (32.0-36.0); Mean Corpuscular Hemoglobin 29.9 pg (27.0-31.0); Mean Corpuscular Volume 89.4 fL (78.0-98.0); Mean Platelet Volume 8.1 fL (7.4-10.4); Platelet Count 274 thou/uL (130-400); RBC Distribution Width 12.6 % (11.5-14.5); Red Blood Cell (RBC) Count 4.66 mill/uL (4.20-5.40); White Blood Cell (WBC) Count 7.2 thou/uL (4.8-10.8)
[2020-04-18 04:50] LABS: Anion Gap 12 mmol/L (10-20); BUN (Urea Nitrogen) 11 mg/dL (7.0-18.7); Calc. Creatinine Clearance 200 mL/min (70-130); Calcium 8.7 mg/dL (7.8-10.44); Carbon Dioxide 26 mmol/L (22-29); Chloride 104 mmol/L (98-107); Estimated GFR-MDRD 78; Glucose 95 mg/dL (70-105); Lipase 12 U/L (8-78); Potassium 3.9 mmol/L (3.5-5.1); Sodium 138 mmol/L (136-145)
[2020-04-18 04:52] LABS: ALT (SGPT) 26 U/L (8-55); AST (SGOT) 17 U/L (5-34); Albumin 3.7 g/dL (3.5-5.0); Alkaline Phosphatase 78 U/L (40-110); Bilirubin, Direct 0.2 mg/dL (0.1-0.3); Bilirubin, Total 0.4 mg/dL (0.2-1.2)
--- NOTE | 2020-04-18 07:33 | ULT ---
ULTRASOUND ABDOMEN LIMITED: (RIGHT UPPER QUADRANT) DATE: 04/18/2020 5:26 AM HISTORY: Right upper quadrant abdominal pain with positive Bhatti's sign, and nausea in 39-year-old female FINDINGS: Because of body habitus, intra-abdominal contents are poorly visualized, especially the right lobe of the liver and the gallbladder. Gallbladder is not excessively distended. No gallbladder mural thickening. No definite obvious large gallstone identified. Negative sonographic Bhatti sign. Left lobe hepatic parenchymal echogenicity is increased, which may represent fatty liver. Nonspecific sonographic appearance of pancreas. No hydronephrosis of right kidney. Common duct well visualized, with caliber of 6 mm. IMPRESSION: 1) Limited study. 2) Limited visualization of gallbladder, but no compelling evidence of acute cholecystitis. 3) hepatomegaly and hepatic steatosis.
[2020-04-18] MEDS ORDERED: Aspirin 81 mg Enteric Coated Tablet PO SCH (09:00)
[2020-04-18] MEDS ORDERED: Aspirin 325 mg Enteric Coated Tablet PO SCH (09:00)
[2020-04-18] MEDS: Famotidine 20 MG TAB PO SCH (09:34)
[2020-04-18] MEDS: Lidocaine 5% Patch TD SCH (09:34)
[2020-04-18] MEDS: Acetaminophen 325 MG TAB PO PRN (09:34)
[2020-04-18] MEDS ORDERED: Lidocaine 2% Viscous Solution 10 ML, Aluminum & Magnesium Hydroxide 30 ML SSW SCH (10:45)
[2020-04-18] MEDS ORDERED: Regadenoson 0.4 MG/5 ML SYRINGE ONE (12:25)
[2020-04-18 12:40] VITALS: BP 126/88; TEMP 97.9
--- NOTE | 2020-04-18 14:03 | NM ---
CARDIAC SPECT: CLINICAL HISTORY: 39-year-old female with chest pain, hypertension. Family history of coronary artery disease. TECHNIQUE: A myocardial perfusion scan was performed using the single isotope two day protocol with 33 mCi techn etium-99m sestamibi injected intravenously for both stress and rest images. Pharmacologic stress with Lexiscan was monitored and interpreted by Dr. Ernst. FINDINGS: There is fairly homogeneous tracer distribution seen in the myocardial segments on stress and rest im ages without fixed or reversible defects. GATED SPECT LVEF: 75%. WALL MOTION EXAM: Normal. IMPRESSION: Normal myocardial perfusion scan. POS: [facility]
--- NOTE | 2020-04-18 15:33 | PDOC.DS.DS ---
Provider - Provider Date of Admission: 04/17/20 11:34 Date of Discharge: 04/18/20 Admitting Provider: Zarina Du MD Consultations: None Primary Care Physician: Jules Almanza MD Course - Hospital Course Hospital Course: Patient presented with chest pain and left shoulder pain. Chest pain improved with GI cocktail. Had cardiac monitoring which was unremarkable. Troponins were trended which were normal, as well as negative d-dimer. She received Famotidine 20 mg PO BID while in the hospital. Reported reflux at the time her pain first started which has not recurred. States she takes tums occasionally at home due to acid reflux. She has chronic discomfort in her right shoulder due to bone spurs for which she occasionally takes Ibuprofen 800 mg. For her left shoulder she received Lidocaine patch. States her discomfort improved with slight improvement in ROM. Still has some difficulty with abducting her shoulder. No neuro deficits. No weakness in her arm or swelling. Pertinent Studies: She is status post stress test which was unremarkable. Chest xray negative. Resuscitation Status: 04/17/20 11:46 Resuscitation Status Routine Co-Sign Provider: Resuscitation Status: FULL: Full Resuscitation - Labs Lab Results: 04/18/20 04:11 04/18/20 04:11 Abnormal Lab Results - Last 48 hrs 04/17/20 09:05: Monocytes # 0.6 H - Physical Exam Vitals: Vital Signs (12 hours) Temp Pulse Resp BP Pulse Ox 04/18/20 12:05 97.9 F 72 16 126/88 96 04/18/20 07:20 97.8 F 67 17 156/93 H 96 04/18/20 04:00 97.7 F 68 16 125/87 96 Weight Weight 303 lb Physical Exam: The patient was seen and examined on the day of discharge. Problem - Discharge Plan Assessment: Chest pain unlikely to be cardiac in nature. Possibly due to esophagitis/gastritis given chronic NSAID use and improvement with GI Cocktail. Left shoulder injury, somewhat improved. Could be muscle strain due to repetitive motion at work. 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 Plan of Treatment: Patient cleared for discharge home with advice to follow-up with her PCP within the next week. May benefit from EGD as an outpatient for possible esophagitis/gastritis. Advised to avoid NSAIDs. Given a prescription for Famotidine 20 mg PO BID. Advised to return to ED if any worsening or recurring chest pain. If shoulder pain persists, PCP or her Ortho specialist to decide if further imaging warranted i.e. CT vs. MRI of left shoulder. Given a prescription for Lidocaine patches which she may use for both shoulders. Recommended Tylenol for pain. - Problem (1) Chest pain Code(s): R07.9 - CHEST PAIN, UNSPECIFIED Status: Resolved (2) Left shoulder pain Code(s): M25.512 - PAIN IN LEFT SHOULDER Status: Acute (3) Abdominal tenderness, RUQ (right upper quadrant) Code(s): R10.811 - RIGHT UPPER QUADRANT ABDOMINAL TENDERNESS Status: Resolved (4) Hypertension Code(s): I10 - ESSENTIAL (PRIMARY) HYPERTENSION Status: Chronic (5) Morbid obesity Code(s): E66.01 - MORBID (SEVERE) OBESITY DUE TO EXCESS CALORIES Status: Chronic (6) Anxiety and depression Code(s): F41.9 - ANXIETY DISORDER, UNSPECIFIED; F32.9 - MAJOR DEPRESSIVE DISORDER, SINGLE EPISODE, UNSPECIFIED Status: Chronic Plan - Discharge Medications Prescriptions: Aspirin [Ecotrin Low Strength] 81 mg PO DAILY #30 tab Lidocaine Patch Removal 1 each TOP 2100 #7 each Famotidine [Pepcid] 20 mg PO BID #30 tab Home Medications: Medication Instructions Recorded Confirmed Type Acetaminophen [Tylenol Extra 1,000 mg PO Q6HR PRN 07/16/14 04/17/20 History Strength] Sertraline HCl 100 mg PO DAILY 10/05/18 04/17/20 History Ibuprofen 400 mg PO Q4HR PRN #30 tablet 10/06/18 04/17/20 Rx Lisinopril 5 mg PO DAILY #30 tablet 10/06/18 04/17/20 Rx Albuterol Sulfate [Proair HFA] 1 puff INH Q4HR PRN 04/17/20 04/17/20 History Aspirin [Ecotrin Low Strength] 81 mg PO DAILY #30 tab 04/18/20 Rx Famotidine [Pepcid] 20 mg PO BID #30 tab 04/18/20 Rx Lidocaine Patch Removal 1 each TOP 2100 #7 each 04/18/20 Rx Allergies: prednisone Allergy (Verified 04/17/20 15:24) - Discharge Instructions Discharge Instructions:: Please follow-up with your primary care physician within the next week. Please return to the ED if any worsening/recurring symptoms. Follow-up with your ortho physician regarding left shoulder pain for further management/work-up. Activity:: Activity as Tolerated, Activity Restrictions (Avoid strenurous activty with left upper extremity util evaluated by ortho) Nourishment:: Heart Healthy Diet - Follow up Plan Referrals: Jules Almanza MD [Primary Care Provider] - 7 Days (Please call the office to schedule an appointment within the next week) Disposition: HOME
[2020-04-18] MEDS ORDERED: FLU VACC QS2020-21(6MOS UP)/PF 60 MCG/0.5 ML SYRINGE IM ONE (16:00)
--- NOTE | 2020-04-20 13:13 | EKG ---
Test Reason : ER Blood Pressure : / mmHG Vent. Rate : 080 BPM Atrial Rate : 080 BPM P-R Int : 164 ms QRS Dur : 076 ms QT Int : 360 ms P-R-T Axes : 034 024 015 degrees QTc Int : 415 ms Normal sinus rhythm Normal ECG Confirmed by RAMILA CANTU DO ([id number]), editor book ALEJANDRA CUMMINS ([id number]) on 04/20/2020 1:13:28 PM Referred By: Confirmed By:RAMILA CANTU DO
== END 2020-04-18 16:15 | disposition home or self-care (01) ==
LOC: ERS 08:51 → ERHOLD 11:34 → 2NO 15:10
PROVIDERS: ADMIT Internal Medicine; ATTEND Internal Medicine
DX: R07.89 Other chest pain (principal); M25.512 Pain in left shoulder; R10.811 Right upper quadrant abdominal tenderness; I10 Essential (primary) hypertension; F41.9 Anxiety disorder, unspecified; F32.9 Major depressive disorder, single episode, unspecified; K76.0 Fatty (change of) liver, not elsewhere classified; E66.01 Morbid (severe) obesity due to excess calories; Z68.43 Body mass index [BMI] 50.0-59.9, adult; Z87.891 Personal history of nicotine dependence; Z79.82 Long term (current) use of aspirin; Z79.899 Other long term (current) drug therapy; Z88.8 Allergy status to other drugs, medicaments and biological substances; Z20.828 Contact with and (suspected) exposure to other viral communicable diseases
CPT/HCPCS: 36415; 71045; 76705; 78452; 80048; 80053; 80076; 82550; 83690; 83735; 84443; 84484; 84703; 85025; 85379; 87635; 93005; 93017; 94760; A9500; G0378; J2785; U0003

== ENCOUNTER 2020-07-22 12:19 | Emergency (ER) | payer BC, SELFPAY ==
[2020-07-22 13:26] LABS: #Basophils 0.1 thou/uL (0.0-0.2); #Eosinphils 0.2 thou/uL (0.0-0.7); #Lymphocytes 1.7 thou/uL (1.20-3.40); #Monocytes 0.6 thou/uL (0.11-0.59); #Neutrophils 6.3 thou/uL (1.40-6.50); %Basophils 0.9 % (0.0-1.0); %Eosinophils 2.2 % (0.0-10.0); %Lymphocytes 18.8 % (21.0-51.0); %Monocytes 6.5 % (0.0-10.0); %Neutrophils 71.6 % (42.0-75.0); Hemoglobin 13.9 g/dL (12.0-16.0); Mean Corpuscular HGB CONC 33.1 g/dL (32.0-36.0); Mean Corpuscular Hemoglobin 29.1 pg (27.0-31.0); Mean Platelet Volume 7.9 fL (7.4-10.4); Platelet Count 287 thou/uL (130-400); RBC Distribution Width 13.1 % (11.5-14.5); Red Blood Cell (RBC) Count 4.77 mill/uL (4.20-5.40); White Blood Cell (WBC) Count 8.8 thou/uL (4.8-10.8)
[2020-07-22 13:34] LABS: Bacteria/HPF None Seen HPF (None Seen); Bilirubin Negative (Negative); Blood, Urine Negative (Negative); Clarity Clear (Clear); Glucose, Urine (Dipstick) Normal (Negative); Ketone, Urine Negative (Negative); Leukocyte 25 Leu/uL (Negative); Nitrite Negative (Negative); Protein, Urine (Dipstick) Negative (Neg-Trace); RBC/HPF 0-3 HPF (0-3); Specific Gravity, Urine 1.023 (1.002-1.036); Urobilinogen Normal mg/dL (Less than 2); WBC/HPF 0-3 HPF (0-3)
[2020-07-22 13:37] LABS: Pregnancy Test - Urine (BHCG) Negative (Negative); Pregu Control Background? CLEAR/WHITE (CLR/WHITE); Pregu Control Bar Appear? YES (CONTROL BAR); Specific Gravity 1.023 (1.002-1.036)
[2020-07-22 13:49] LABS: Acetaminophen Less than 6.0 mcg/mL (10.0-30.0); Alcohol Less than 10 mg/dL (Less than 10); Salicylate Less than 8.0 mg/dL (15.0-30.0)
[2020-07-22 13:50] LABS: Amphetamine Not Detected (NotDetected); Barbiturates Screen Not Detected (NotDetected); Benzodiazepine Screen Not Detected (NotDetected); Cocaine Metabolite Screen Not Detected (NotDetected); Medtox Control Line Valid? VALID (VALID); Medtox Reader # READER 4; Methadone Not Detected (NotDetected); Methamphetamine Not Detected (NotDetected); Opiate Screen Not Detected (NotDetected); Oxycodone Screen Not Detected (NotDetected); Phencyclidine (PCP) Not Detected (NotDetected); THC/Cannabinoid Screen Not Detected (NotDetected); Tricyclic Screen Not Detected (NotDetected)
[2020-07-22 13:50] LABS: ALT (SGPT) 20 U/L (8-55); AST (SGOT) 16 U/L (5-34); Albumin 3.8 g/dL (3.5-5.0); Alkaline Phosphatase 86 U/L (40-110); Anion Gap 12 mmol/L (10-20); BUN (Urea Nitrogen) 10 mg/dL (7.0-18.7); Bilirubin, Total 0.2 mg/dL (0.2-1.2); CK (CPK) 46 U/L (29-168); Calc. Creatinine Clearance 0 mL/min (70-130); Calcium 9.1 mg/dL (7.8-10.44); Carbon Dioxide 24 mmol/L (22-29); Chloride 106 mmol/L (98-107); Globulin 3.6 g/dL (2.4-3.5); Glucose 88 mg/dL (70-105); Potassium 4.2 mmol/L (3.5-5.1); Protein, Total 7.4 g/dL (6.0-8.3); Sodium 138 mmol/L (136-145)
[2020-07-22] MEDS ORDERED: Ondansetron PF 4 MG/2 ML Vial ONE (14:09)
[2020-07-22] MEDS ORDERED: Lorazepam 2 MG/ML VIAL ONE (16:55)
== END 2020-07-22 22:50 ==
LOC: ERS 12:19
DX: T43.202A Poisoning by unspecified antidepressants, intentional self-harm, initial encounter (principal); F41.9 Anxiety disorder, unspecified; R11.0 Nausea; I10 Essential (primary) hypertension; Z87.891 Personal history of nicotine dependence; Z79.899 Other long term (current) drug therapy
CPT/HCPCS: 80053; 80306; 80307; 81003; 81015; 81025; 82550; 84443; 85025; 93005; 96374; 96375; J2060; J2405

== ENCOUNTER 2021-01-27 11:42 | Emergency (ER) | payer OTHER | END 2021-01-27 13:15 | disposition home or self-care (01) | LOC: ERS 11:42 | DX: U07.1 COVID-19 (principal); I10 Essential (primary) hypertension; Z79.899 Other long term (current) drug therapy | CPT/HCPCS: 99283 ==

== ENCOUNTER 2021-04-13 19:00 | Outpatient (CLI) | payer BC, OTHER | END 2021-04-13 19:01 | disposition home or self-care (01) | LOC: SLEEPLAB 19:00 | PROVIDERS: ATTEND Family Medicine | DX: G47.33 Obstructive sleep apnea (adult) (pediatric) (principal); R09.02 Hypoxemia; R06.83 Snoring; G47.10 Hypersomnia, unspecified; E66.9 Obesity, unspecified; Z68.43 Body mass index [BMI] 50.0-59.9, adult | CPT/HCPCS: 95811 ==

== ENCOUNTER 2025-01-25 06:58 | Emergency (ER) | payer BC ==
[2025-01-25] MEDS ORDERED: Acetaminophen 500 MG TAB ONE (07:49)
[2025-01-25] MEDS ORDERED: Ketorolac Tromethamine 30 MG (1 mL) VIAL ONE (07:49)
[2025-01-25] MEDS ORDERED: Ondansetron PF 4 MG/2 ML Vial ONE (07:56)
[2025-01-25 08:06] LABS: #Basophils Less than 0.03 10x3/uL (0.0-0.2); #Eosinophils 0.11 10x3/uL (0.0-0.7); #Monocytes 0.34 10x3/uL (0.11-0.59); #Neutrophils 6.22 10x3/uL (1.40-6.50); %Basophils 0.3 % (0.0-1.0); %Eosinophils 1.6 % (0.0-10.0); %Lymphocytes 4.7 % (21.0-51.0); %Monocytes 4.8 % (0.0-10.0); %Neutrophils 88.2 % (42.0-75.0); Hematocrit 39.6 % (36.0-47.0); Hemoglobin 13.1 g/dL (12.0-16.0); Mean Corpuscular Hemoglobin 27.8 pg (27.0-31.0); Mean Corpuscular Volume 83.9 fL (78.0-98.0); Platelet Count 257 10x3/uL (130-400); Red Blood Cell (RBC) Count 4.72 mill/uL (4.20-5.40); White Blood Cell (WBC) Count 7.05 10x3/uL (4.8-10.8)
[2025-01-25 08:24] LABS: ALT (SGPT) 80 U/L (Less than 34); AST (SGOT) 97 U/L (11-34); Albumin 3.8 g/dL (3.1-4.5); Alkaline Phosphatase 100 U/L (40-110); Anion Gap 13 mmol/L (10-20); BUN (Urea Nitrogen) 15 mg/dL (7.0-18.7); Bilirubin, Total 0.4 mg/dL (0.3-1.2); Calc. Creatinine Clearance 0 mL/min (70-130); Calcium 9.0 mg/dL (7.8-10.44); Carbon Dioxide 24 mmol/L (22-29); Chloride 103 mmol/L (98-107); Globulin 3.8 g/dL (2.4-3.5); Glucose 99 mg/dL (70-105); Magnesium 1.6 mg/dL (1.6-2.6); Potassium 4.1 mmol/L (3.5-5.1); Sodium 136 mmol/L (136-145)
== END 2025-01-25 10:08 | disposition home or self-care (01) ==
LOC: ERS 06:58
DX: B34.9 Viral infection, unspecified (principal); E11.9 Type 2 diabetes mellitus without complications; I10 Essential (primary) hypertension; F17.290 Nicotine dependence, other tobacco product, uncomplicated
CPT/HCPCS: 71045; 80053; 83735; 84484; 85025; 87081; 87428; 87430; 93005; 94760; 96361; 96374; 96375; J1885; J2405